=== PATIENT | male | born 1960 ===

== ENCOUNTER 2021-01-22 08:38 | Inpatient (IN) ==
[2021-01-22] MEDS: lisinopriL 20 MG TABLET PO SCH (20:21)
[2021-01-22] MEDS: Cefuroxime PO 250 MG TABLET PO SCH (20:21)
[2021-01-22] MEDS: hydrALAZINE 10 MG TABLET PO PRN (20:21)
[2021-01-23] MEDS: hydrALAZINE 25 MG TABLET PO SCH ×4 (00:04→23:44)
[2021-01-23 05:15] LABS: Basophils % 0.5 %; Eosinophils # 0.4 K/mcL (0.0-0.6); Eosinophils % 4.9 %; Hematocrit 45.2 % (37.5-50.1); Hemoglobin 15.4 g/dL (12.9-16.9); Immature Granulocytes % 0.5 % (0-4); Lymphocytes # 1.6 K/mcL (0.6-4.6); Lymphocytes % 18.6 %; Mean Corpuscular HGB Conc 34.1 g/dL (31.6-35.5); Mean Corpuscular Volume 87.9 fL (83.0-100.0); Mean Platelet Volume 9.3 fL (9.4-12.4); Monocytes # 1.1 K/mcL (0.0-1.3); Monocytes % 12.3 %; Neutrophils # 5.4 K/mcL (1.6-8.9); Platelet Count 273 K/mcL (140-400); Red Blood Count 5.14 M/mcL (4.19-5.50); Segmented Neutrophils % 63.2 %; White Blood Count 8.5 K/mcL (4.3-11.1)
[2021-01-23 05:29] LABS: Albumin 3.7 g/dL (3.5-5.7); Albumin/Globulin Ratio 1.2 (1.1-2.2); Bilirubin,Total 0.7 mg/dL (0.3-1.0); Calcium 9.2 mg/dL (8.6-10.3); Globulin 3.1 g/dL (2.4-3.5); Potassium 4.1 mEq/L (3.5-5.1); Total Protein 6.8 g/dL (6.4-8.9)
[2021-01-23] MEDS: *HR* Enoxaparin 40 MG/0.4 ML SYRINGE SQ SCH (05:50)
[2021-01-23] MEDS: hydrALAZINE 10 MG TABLET PO PRN (05:50)
[2021-01-23] MEDS: Aspirin 81 MG TAB.CHEW PO SCH (08:22)
[2021-01-23] MEDS: lisinopriL 20 MG TABLET PO SCH ×2 (08:22→22:01)
[2021-01-23] MEDS: amLODIPine 5 MG TABLET PO SCH (08:22)
[2021-01-23] MEDS: Cefuroxime PO 250 MG TABLET PO SCH ×3 (09:44→22:00)
[2021-01-23] MEDS ORDERED: lisinopriL 20 MG TABLET PO ONE (10:15)
[2021-01-24] MEDS: *HR* Enoxaparin 40 MG/0.4 ML SYRINGE SQ SCH (06:19)
[2021-01-24] MEDS: Cefuroxime PO 250 MG TABLET PO SCH ×2 (08:42→21:00)
[2021-01-24] MEDS: amLODIPine 5 MG TABLET PO SCH (08:43)
[2021-01-24] MEDS: Aspirin 81 MG TAB.CHEW PO SCH (08:43)
[2021-01-24] MEDS: hydrALAZINE 25 MG TABLET PO SCH ×3 (08:43→23:54)
[2021-01-24] MEDS: lisinopriL 20 MG TABLET PO SCH ×2 (08:43→21:00)
[2021-01-25] MEDS: *HR* Enoxaparin 40 MG/0.4 ML SYRINGE SQ SCH (05:56)
[2021-01-25] MEDS: hydrALAZINE 25 MG TABLET PO SCH ×2 (09:28→16:12)
[2021-01-25] MEDS: lisinopriL 20 MG TABLET PO SCH ×2 (09:29→21:44)
[2021-01-25] MEDS: Cefuroxime PO 250 MG TABLET PO SCH ×2 (09:29→21:44)
[2021-01-25] MEDS: amLODIPine 5 MG TABLET PO SCH (09:29)
[2021-01-25] MEDS: Aspirin 81 MG TAB.CHEW PO SCH (09:30)
[2021-01-26] MEDS: hydrALAZINE 25 MG TABLET PO SCH ×4 (00:47→23:26)
[2021-01-26] MEDS: *HR* Enoxaparin 40 MG/0.4 ML SYRINGE SQ SCH (06:48)
[2021-01-26] MEDS: CloNIDine Patch 0.1 MG PATCH (WEEKLY) TD SCH (08:20)
[2021-01-26] MEDS: Aspirin 81 MG TAB.CHEW PO SCH (08:21)
[2021-01-26] MEDS: amLODIPine 5 MG TABLET PO SCH (08:21)
[2021-01-26] MEDS: Cefuroxime PO 250 MG TABLET PO SCH ×2 (08:21→19:51)
[2021-01-26] MEDS: lisinopriL 20 MG TABLET PO SCH ×2 (08:21→19:51)
[2021-01-26] MEDS: hydrALAZINE 10 MG TABLET PO PRN (19:50)
[2021-01-27] MEDS: *HR* Enoxaparin 40 MG/0.4 ML SYRINGE SQ SCH (06:13)
[2021-01-27] MEDS: lisinopriL 20 MG TABLET PO SCH ×2 (09:20→19:56)
[2021-01-27] MEDS: Cefuroxime PO 250 MG TABLET PO SCH ×2 (09:20→19:56)
[2021-01-27] MEDS: hydrALAZINE 25 MG TABLET PO SCH ×3 (09:20→23:21)
[2021-01-27] MEDS: Aspirin 81 MG TAB.CHEW PO SCH (09:20)
[2021-01-27] MEDS: amLODIPine 5 MG TABLET PO SCH (10:26)
[2021-01-28] MEDS: *HR* Enoxaparin 40 MG/0.4 ML SYRINGE SQ SCH (05:30)
[2021-01-28 05:37] LABS: Hematocrit 41.2 % (37.5-50.1); Mean Corpuscular HGB Conc 33.7 g/dL (31.6-35.5); Mean Platelet Volume 9.4 fL (9.4-12.4); Platelet Count 321 K/mcL (140-400); Red Blood Count 4.63 M/mcL (4.19-5.50); White Blood Count 11.2 K/mcL (4.3-11.1)
[2021-01-28 05:40] LABS: Hemoglobin 13.9 g/dL (12.9-16.9)
[2021-01-28 05:51] LABS: Albumin 3.5 g/dL (3.5-5.7); Albumin/Globulin Ratio 1.1 (1.1-2.2); Bilirubin,Total 0.8 mg/dL (0.3-1.0); Calcium 8.7 mg/dL (8.6-10.3); Globulin 3.1 g/dL (2.4-3.5); Magnesium 1.9 mg/dL (1.6-2.6); Potassium 4.6 mEq/L (3.5-5.1); Total Protein 6.6 g/dL (6.4-8.9)
[2021-01-28] MEDS: amLODIPine 5 MG TABLET PO SCH (08:07)
[2021-01-28] MEDS: lisinopriL 20 MG TABLET PO SCH ×2 (08:07→23:02)
[2021-01-28] MEDS: hydrALAZINE 25 MG TABLET PO SCH ×3 (08:07→23:02)
[2021-01-28] MEDS: Aspirin 81 MG TAB.CHEW PO SCH (08:07)
[2021-01-28] MEDS: Cefuroxime PO 250 MG TABLET PO SCH ×2 (08:07→23:02)
[2021-01-29] MEDS: *HR* Enoxaparin 40 MG/0.4 ML SYRINGE SQ SCH (06:14)
[2021-01-29] MEDS: amLODIPine 5 MG TABLET PO SCH (08:10)
[2021-01-29] MEDS: lisinopriL 20 MG TABLET PO SCH ×2 (08:10→21:39)
[2021-01-29] MEDS: Aspirin 81 MG TAB.CHEW PO SCH (08:10)
[2021-01-29] MEDS: Cefuroxime PO 250 MG TABLET PO SCH ×2 (08:10→21:40)
[2021-01-29] MEDS: hydrALAZINE 25 MG TABLET PO SCH ×2 (08:11→17:45)
[2021-01-30] MEDS: hydrALAZINE 25 MG TABLET PO SCH ×3 (00:30→16:23)
[2021-01-30] MEDS: *HR* Enoxaparin 40 MG/0.4 ML SYRINGE SQ SCH (06:03)
[2021-01-30] MEDS: Aspirin 81 MG TAB.CHEW PO SCH (08:31)
[2021-01-30] MEDS: amLODIPine 5 MG TABLET PO SCH (08:31)
[2021-01-30] MEDS: Cefuroxime PO 250 MG TABLET PO SCH ×2 (08:31→20:43)
[2021-01-30] MEDS: lisinopriL 20 MG TABLET PO SCH ×2 (08:31→20:42)
[2021-01-31] MEDS: hydrALAZINE 25 MG TABLET PO SCH ×4 (00:18→23:43)
[2021-01-31] MEDS: *HR* Enoxaparin 40 MG/0.4 ML SYRINGE SQ SCH (05:42)
[2021-01-31] MEDS: amLODIPine 5 MG TABLET PO SCH (09:12)
[2021-01-31] MEDS: Cefuroxime PO 250 MG TABLET PO SCH ×2 (09:12→20:47)
[2021-01-31] MEDS: Aspirin 81 MG TAB.CHEW PO SCH (09:13)
[2021-01-31] MEDS: lisinopriL 20 MG TABLET PO SCH ×2 (09:14→20:49)
[2021-01-31] MEDS ORDERED: E-Z-PAQUE (BARIUM SULF) SUSP 1 BOTTLE PO ONE (15:45)
[2021-01-31] MEDS ORDERED: E-Z-HD (BARIUM SULF) SUSPENSION PO ONE (15:45)
[2021-02-01] MEDS: *HR* Enoxaparin 40 MG/0.4 ML SYRINGE SQ SCH (04:37)
[2021-02-01] MEDS: Cefuroxime PO 250 MG TABLET PO SCH (09:44)
[2021-02-01] MEDS: amLODIPine 5 MG TABLET PO SCH (09:44)
[2021-02-01] MEDS: hydrALAZINE 25 MG TABLET PO SCH ×2 (09:44→16:37)
[2021-02-01] MEDS: Aspirin 81 MG TAB.CHEW PO SCH (09:45)
[2021-02-01] MEDS: lisinopriL 20 MG TABLET PO SCH ×2 (09:45→21:52)
[2021-02-02] MEDS: hydrALAZINE 25 MG TABLET PO SCH ×3 (01:27→16:57)
[2021-02-02] MEDS: *HR* Enoxaparin 40 MG/0.4 ML SYRINGE SQ SCH (05:18)
[2021-02-02] MEDS: Aspirin 81 MG TAB.CHEW PO SCH (08:52)
[2021-02-02] MEDS: amLODIPine 5 MG TABLET PO SCH (08:52)
[2021-02-02] MEDS: lisinopriL 20 MG TABLET PO SCH ×2 (08:52→20:04)
[2021-02-02] MEDS: CloNIDine Patch 0.1 MG PATCH (WEEKLY) TD SCH (08:53)
[2021-02-03] MEDS: hydrALAZINE 25 MG TABLET PO SCH ×3 (00:30→16:58)
[2021-02-03] MEDS: *HR* Enoxaparin 40 MG/0.4 ML SYRINGE SQ SCH (05:17)
[2021-02-03] MEDS: Aspirin 81 MG TAB.CHEW PO SCH (08:17)
[2021-02-03] MEDS: amLODIPine 5 MG TABLET PO SCH (08:18)
[2021-02-03] MEDS: lisinopriL 20 MG TABLET PO SCH ×2 (08:18→20:15)
[2021-02-04] MEDS: hydrALAZINE 25 MG TABLET PO SCH ×3 (00:38→17:08)
[2021-02-04] MEDS: *HR* Enoxaparin 40 MG/0.4 ML SYRINGE SQ SCH (05:58)
[2021-02-04] MEDS: lisinopriL 20 MG TABLET PO SCH ×2 (08:41→21:33)
[2021-02-04] MEDS: amLODIPine 5 MG TABLET PO SCH (08:41)
[2021-02-04] MEDS: Aspirin 81 MG TAB.CHEW PO SCH (08:41)
[2021-02-05] MEDS: hydrALAZINE 25 MG TABLET PO SCH ×2 (01:24→09:42)
[2021-02-05] MEDS: *HR* Enoxaparin 40 MG/0.4 ML SYRINGE SQ SCH (06:31)
[2021-02-05 07:07] VITALS: BP 155/95
[2021-02-05] MEDS: Aspirin 81 MG TAB.CHEW PO SCH (09:41)
[2021-02-05] MEDS: amLODIPine 5 MG TABLET PO SCH (09:41)
[2021-02-05] MEDS: lisinopriL 20 MG TABLET PO SCH (09:43)
== END 2021-02-05 12:30 | disposition home health service (06) | DRG 57 ==
LOC: INPGRE 16:11
PROVIDERS: ADMIT Family Medicine; ATTEND Family Medicine